=== PATIENT | male | born 1955 | race African-American/Black ===

== ENCOUNTER 2016-12-15 15:05 | Emergency (ER) | payer OTHER ==
[~2016-12-15] VITALS: Ht 162.6 cm; Wt 50.3 kg
[2016-12-15 15:20] VITALS: BP 138/83
[2016-12-15] MEDS ORDERED: HYDROCODONE/APAP 5/325MG TABLET. PO ONE (15:45)
[2016-12-15] MEDS ORDERED: LIDOCAINE 1% / SOD BICARB 8.4% 20 ML VIAL. IJ ONE (15:45)
[2016-12-15] MEDS ORDERED: CYCLOBENZAPRINE 10 MG TABLET. PO ONE (15:45)
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
[2016-12-15] MEDS ORDERED: CYCL10TA2 PO (17:04)
[2016-12-15] MEDS ORDERED: HYDR-971 PO (17:04)
== END 2016-12-15 17:15 | disposition home or self-care (01) ==
LOC: ER 15:05
DX: S02.2XXA Fracture of nasal bones, initial encounter for closed fracture (principal); S01.511A Laceration without foreign body of lip, initial encounter; S13.4XXA Sprain of ligaments of cervical spine, initial encounter; S00.83XA Contusion of other part of head, initial encounter; M54.5 Low back pain; E78.00 Pure hypercholesterolemia, unspecified; I10 Essential (primary) hypertension; V49.40XA Driver injured in collision with unspecified motor vehicles in traffic accident, initial encounter; Y93.I9 Activity, other involving external motion; Y92.410 Unspecified street and highway as the place of occurrence of the external cause; Y99.8 Other external cause status
CPT/HCPCS: 12011; 70450; 70486; 72125; 72131; 99284-25

== ENCOUNTER 2017-06-03 15:51 | Emergency (ER) | payer SELFPAY ==
[~2017-06-03 15:51] MED LIST: CYCL10TA2 PO; HYDR-971 PO
[2017-06-03] MEDS ORDERED: HYDROmorphone 2 MG/ML VIAL IV/SQ PRN (16:15)
[2017-06-03 16:20] LABS: BASO # 0.1 x10^3/uL (0.0-0.2); BASO % 1 % (0-3); EOS % 8 % (0-3); HEMATOCRIT 33.7 % (39.0-53.0); HEMOGLOBIN 11.5 g/dL (13.0-17.5); LYMPH # 2.4 x10^3/uL (1.0-4.8); LYMPH % 42 % (24-48); MEAN CORPUSCULAR HEMOGLOBIN 30 pg (25-35); MEAN CORPUSCULAR HGB CONC 34 g/dL (31-37); MEAN CORPUSCULAR VOLUME 88 fL (79-100); MONO % 8 % (0-9); NEUT % 41 % (31-73); PLATELET COUNT 260 x10^3/uL (140-400); RED BLOOD COUNT 3.81 x10^6/uL (4.30-5.70); RED CELL DISTRIBUTION WIDTH 15.2 % (11.5-14.5); WHITE BLOOD COUNT 5.8 x10^3/uL (4.0-11.0)
[2017-06-03] MEDS ORDERED: ONDANSETRON PF 4 MG/2 ML VIAL. IV ONE (16:30)
[2017-06-03] MEDS ORDERED: IV NORMAL SALINE 1000ML BAG 1,000 ML IV SCH (16:30)
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
[2017-06-03 16:36] LABS: CALCIUM 9.2 mg/dL (8.5-10.1); GFR 91.9; POTASSIUM 3.8 mmol/L (3.5-5.1)
[2017-06-03 16:42] LABS: ALBUMIN 3.5 g/dL (3.4-5.0); DIRECT BILIRUBIN 0.1 mg/dL (0.0-0.2); TOTAL BILIRUBIN 0.4 mg/dL (0.2-1.0); TOTAL PROTEIN 6.8 g/dL (6.4-8.2)
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
[2017-06-03] MEDS ORDERED: IV NORMAL SALINE 1000ML BAG 1,000 ML IV ONE (17:30)
[2017-06-03 18:51] VITALS: BP 146/67
--- NOTE | 2017-06-04 07:12 | EKG ---
[facility] [address] [place] [address] Test Date: 2017-06-03 Test Time: 17:31:35 Pat Name: ZACH BHAKTA Department: Room: Gender: M Tile Applicator: : 1955 Requested By: AMY WASHINGTON Order Number: [id number] Reading MD: Measurements Intervals [place] Rate: 71 P: 47 DC: 146 QRS: 14 QRSD: 80 T: 24 QT: 394 QTc: 433 Interpretive Statements SINUS RHYTHM QRS(T) CONTOUR ABNORMALITY CANNOT RULE OUT ANTEROSEPTAL MYOCARDIAL DAMAGE RI6.01 Unconfirmed report No previous ECG available for comparison
--- NOTE | 2017-06-04 07:36 | RAD ---
Portable chest, 06/03/2017: History: Syncope, shortness of breath The heart size and pulmonary vascularity are normal. No pulmonary infiltrates are seen. There is a probable small calcified granuloma in the right upper lobe. There is no evidence of pleural fluid. IMPRESSION: No acute cardiopulmonary abnormality is detected.
== END 2017-06-03 19:15 | disposition home or self-care (01) ==
LOC: ER 15:51
DX: S09.90XA Unspecified injury of head, initial encounter (principal); M54.2 Cervicalgia; R55 Syncope and collapse; E78.00 Pure hypercholesterolemia, unspecified; I10 Essential (primary) hypertension; W22.8XXA Striking against or struck by other objects, initial encounter; Y93.89 Activity, other specified; Y92.89 Other specified places as the place of occurrence of the external cause; Y99.8 Other external cause status
CPT/HCPCS: 36415; 70450; 71010; 72125; 80048; 80076; 83690; 84484; 85025; 93005; 96360; 96374; 96375; 99285; J1170; J2405; J7030

== ENCOUNTER 2017-12-03 03:28 | Emergency (ER) | payer OTHER ==
[2017-12-03] MEDS: KETOROLAC 30 MG/ML INJ. IM (04:00)
== END 2017-12-03 04:22 | disposition home or self-care (01) ==
LOC: ER 03:28
DX: M79.604 Pain in right leg (principal); R06.82 Tachypnea, not elsewhere classified; K21.9 Gastro-esophageal reflux disease without esophagitis; E78.00 Pure hypercholesterolemia, unspecified; I10 Essential (primary) hypertension; F14.10 Cocaine abuse, uncomplicated; G89.29 Other chronic pain
CPT/HCPCS: 96372; 99283; J1885

== ENCOUNTER 2018-02-11 00:58 | Inpatient (IN) | payer OTHER ==
[2018-02-11 01:44] LABS: BASO # 0.1 x10^3/uL (0.0-0.2); BASO % 1 % (0-3); EOS # 1.8 x10^3/uL (0.0-0.7); EOS % 15 % (0-3); HEMATOCRIT 35.8 % (39.0-53.0); HEMOGLOBIN 12.2 g/dL (13.0-17.5); LYMPH % 16 % (24-48); MEAN CORPUSCULAR HEMOGLOBIN 28 pg (25-35); MEAN CORPUSCULAR HGB CONC 34 g/dL (31-37); MEAN CORPUSCULAR VOLUME 83 fL (79-100); MONO # 0.6 x10^3/uL (0.0-1.1); MONO % 5 % (0-9); NEUT # 7.9 x10^3uL (1.8-7.7); NEUT % 64 % (31-73); PLATELET COUNT 393 x10^3/uL (140-400); RED CELL DISTRIBUTION WIDTH 15.7 % (11.5-14.5); WHITE BLOOD COUNT 12.4 x10^3/uL (4.0-11.0)
[2018-02-11 01:48] LABS: ADD MAN DIFF? YES
[2018-02-11 01:52] LABS: AMPHETAMINE/METHAMPHETAMINE NEG (NEG); BARBITURATES NEG (NEG); BENZODIAZEPINES NEG (NEG); CANNABINOIDS NEG (NEG); COCAINE POS (NEG); METHADONE NEG (NEG); OPIATES NEG (NEG); PHENCYCLIDINE NEG (NEG)
[2018-02-11 01:53] LABS: ETHANOL, URINE NEG (NEG)
[2018-02-11 01:56] LABS: PROTHROMBIN TIME PATIENT 12.8 SEC (11.7-14.0)
[2018-02-11 01:57] LABS: ANION GAP 8 (6-14); BLOOD UREA NITROGEN 8 mg/dL (8-26); BUN/CREATININE RATIO 10 (6-20); CALCIUM 9.4 mg/dL (8.5-10.1); CARBON DIOXIDE 25 mmol/L (21-32); CHLORIDE 105 mmol/L (98-107); CREATININE 0.8 mg/dL (0.7-1.3); GFR 118.5; GLUCOSE 117 mg/dL (70-99); POTASSIUM 3.9 mmol/L (3.5-5.1); SODIUM 138 mmol/L (136-145)
[2018-02-11 02:02] LABS: ALBUMIN 2.7 g/dL (3.4-5.0); ALBUMIN/GLOBULIN RATIO 0.6 (1.0-1.7); ALK PHOS 87 U/L (46-116); ALT (SGPT) 10 U/L (16-63); AST (SGOT) 10 U/L (15-37); TOTAL BILIRUBIN 0.3 mg/dL (0.2-1.0); TOTAL PROTEIN 7.4 g/dL (6.4-8.2)
[2018-02-11 02:03] LABS: ETHANOL < 10 mg/dL (0-10)
[2018-02-11 02:18] LABS: % BANDS 5 % (0-9); % EOS 6 % (0-5); % LYMPHS 17 % (24-48); % MONOS 5 % (0-10); % SEGS 67 % (35-66); PLT ESTIMATE ADEQUATE (ADEQUATE)
[2018-02-11] MEDS ORDERED: CONTRAST GIVEN MC (02:30)
[2018-02-11] MEDS: IOHEXOL 300 MG/ML 100ML VIAL. IV (02:39)
[2018-02-11] MEDS: DEXAMETHASONE SOD PHOS 20 MG/5 ML VIAL. IV (04:37)
[2018-02-11] MEDS: fentaNYL PF VIAL 100 MCG/2 ML VIAL IV ×2 (04:38→20:56)
[2018-02-11] MEDS: NICOTINE 14MG PATCH. TD (10:38)
[2018-02-11] MEDS: oxyCODONE/APAP 5/325 1 TAB TABLET PO ×4 (10:40→23:48)
[2018-02-11] MEDS: GADOBUTROL 7.5 MMOL/7.5 ML VIAL IV (14:31)
[2018-02-11] MEDS: DEXAMETHASONE SOD PHOS 4 MG/ML VIAL IV ×2 (19:52→23:47)
[2018-02-12 01:07] LABS: PROSTATE SPECIFIC ANTIGEN 6.09 ng/mL (0.00-4.00)
[2018-02-12] MEDS: DEXAMETHASONE SOD PHOS 4 MG/ML VIAL IV ×4 (05:52→23:34)
[2018-02-12] MEDS: oxyCODONE/APAP 5/325 1 TAB TABLET PO ×3 (05:53→17:47)
[2018-02-12] MEDS ORDERED: POLYETHYLENE GLYCOL 3350 17 GM PACKET. PO (08:30)
[2018-02-12] MEDS: NICOTINE 14MG PATCH. TD (09:44)
[2018-02-12] MEDS: MORPHINE IR 15 MG TABLET PO ×2 (12:27→23:33)
[2018-02-12] MEDS: MORPHINE ER 15 MG TABLET.ER PO ×2 (14:20→21:33)
[2018-02-12] MEDS ORDERED: POLYVINYL ALCOHOL 1.4% OPHTH SOLUTION 15ML BOTTLE. OU (20:15)
[2018-02-12] MEDS ORDERED: LACTASE 3,000 UNIT TABLET PO (20:30)
[2018-02-12] MEDS ORDERED: LOPERAMIDE 2 MG CAPSULE PO (20:30)
[2018-02-12] MEDS: ZOLPIDEM 5 MG TABLET. PO (21:31)
[2018-02-12] MEDS: MEGESTROL 20 MG TABLET. PO (21:31)
[2018-02-12] MEDS: GABAPENTIN 300 MG CAPSULE. PO (21:32)
[2018-02-12] MEDS: SIMVASTATIN 20 MG TABLET PO (21:32)
[2018-02-12] MEDS: CALCIUM CARB/VIT D3 500/200 TABLET. PO (21:32)
[2018-02-12] MEDS: DIVALPROEX EXTENDED RELEASE 500 MG TAB.ER.24H. PO (21:32)
[2018-02-12] MEDS: ONDANSETRON ODT 4 MG TAB.RAPDIS. PO (23:42)
[2018-02-13] MEDS: oxyCODONE/APAP 5/325 1 TAB TABLET PO ×2 (02:27→14:19)
[2018-02-13] MEDS: MORPHINE IR 15 MG TABLET PO ×4 (06:12→23:46)
[2018-02-13] MEDS: DEXAMETHASONE SOD PHOS 4 MG/ML VIAL IV ×4 (06:12→23:46)
[2018-02-13] MEDS: NICOTINE 14MG PATCH. TD (09:02)
[2018-02-13] MEDS: FLUoxetine HCL 20 MG CAPSULE PO (09:02)
[2018-02-13] MEDS: MELOXICAM 7.5 MG TABLET PO (09:02)
[2018-02-13] MEDS: MEGESTROL 20 MG TABLET. PO ×2 (09:02→21:23)
[2018-02-13] MEDS: POLYETHYLENE GLYCOL 3350 17 GM PACKET. PO (09:02)
[2018-02-13] MEDS: GABAPENTIN 300 MG CAPSULE. PO ×3 (09:02→21:22)
[2018-02-13] MEDS: amLODIPine BESYLATE 5 MG TABLET PO (09:03)
[2018-02-13] MEDS: MULTIVITAMIN with MINERAL TABLET. PO (09:03)
[2018-02-13] MEDS: TAMSULOSIN 0.4 MG CAP.ER.24H. PO (09:03)
[2018-02-13] MEDS: LISINOPRIL 20 MG TABLET PO (09:03)
[2018-02-13] MEDS: FERROUS SULFATE 325 MG TABLET. PO (09:04)
[2018-02-13] MEDS: PANTOPRAZOLE 40 MG TABLET.DR. PO (09:04)
[2018-02-13] MEDS: MORPHINE ER 15 MG TABLET.ER PO ×2 (09:04→21:22)
[2018-02-13] MEDS: CALCIUM CARB/VIT D3 500/200 TABLET. PO ×2 (09:04→21:22)
[2018-02-13] MEDS: ONDANSETRON ODT 4 MG TAB.RAPDIS. PO (12:47)
[2018-02-13] MEDS: DIVALPROEX EXTENDED RELEASE 500 MG TAB.ER.24H. PO (21:22)
[2018-02-13] MEDS: ZOLPIDEM 5 MG TABLET. PO (21:23)
[2018-02-13] MEDS: SIMVASTATIN 20 MG TABLET PO (21:23)
[2018-02-14] MEDS: ONDANSETRON ODT 4 MG TAB.RAPDIS. PO ×2 (00:39→08:25)
[2018-02-14] MEDS: oxyCODONE/APAP 5/325 1 TAB TABLET PO (03:46)
[2018-02-14] MEDS: MORPHINE IR 15 MG TABLET PO ×3 (06:24→23:58)
[2018-02-14] MEDS: DEXAMETHASONE SOD PHOS 4 MG/ML VIAL IV ×4 (06:24→23:57)
[2018-02-14] MEDS: FLUoxetine HCL 20 MG CAPSULE PO (08:15)
[2018-02-14] MEDS: PANTOPRAZOLE 40 MG TABLET.DR. PO (08:15)
[2018-02-14] MEDS: GABAPENTIN 300 MG CAPSULE. PO ×3 (08:15→20:04)
[2018-02-14] MEDS: POLYETHYLENE GLYCOL 3350 17 GM PACKET. PO ×2 (08:15→20:12)
[2018-02-14] MEDS: LISINOPRIL 20 MG TABLET PO (08:16)
[2018-02-14] MEDS: MELOXICAM 7.5 MG TABLET PO (08:16)
[2018-02-14] MEDS: DOCUSATE SODIUM 100 MG CAPSULE. PO ×2 (08:16→20:11)
[2018-02-14] MEDS: MORPHINE ER 15 MG TABLET.ER PO ×2 (08:17→20:05)
[2018-02-14] MEDS: MULTIVITAMIN with MINERAL TABLET. PO (08:17)
[2018-02-14] MEDS: amLODIPine BESYLATE 5 MG TABLET PO (08:17)
[2018-02-14] MEDS: FERROUS SULFATE 325 MG TABLET. PO (08:18)
[2018-02-14] MEDS: TAMSULOSIN 0.4 MG CAP.ER.24H. PO (08:18)
[2018-02-14] MEDS: NICOTINE 14MG PATCH. TD (08:18)
[2018-02-14] MEDS: CALCIUM CARB/VIT D3 500/200 TABLET. PO ×2 (08:18→20:04)
[2018-02-14] MEDS: MEGESTROL 20 MG TABLET. PO ×2 (08:18→20:05)
[2018-02-14] MEDS: DIVALPROEX EXTENDED RELEASE 500 MG TAB.ER.24H. PO (20:04)
[2018-02-14] MEDS: ZOLPIDEM 5 MG TABLET. PO (20:04)
[2018-02-14] MEDS: SIMVASTATIN 20 MG TABLET PO (20:05)
[2018-02-15] MEDS: DEXAMETHASONE SOD PHOS 4 MG/ML VIAL IV ×3 (05:30→21:07)
[2018-02-15] MEDS: LISINOPRIL 20 MG TABLET PO (08:49)
[2018-02-15] MEDS: NICOTINE 14MG PATCH. TD (08:49)
[2018-02-15] MEDS: TAMSULOSIN 0.4 MG CAP.ER.24H. PO (08:50)
[2018-02-15] MEDS: amLODIPine BESYLATE 5 MG TABLET PO (08:50)
[2018-02-15] MEDS: FLUoxetine HCL 20 MG CAPSULE PO (08:51)
[2018-02-15] MEDS: MELOXICAM 7.5 MG TABLET PO (08:51)
[2018-02-15] MEDS: GABAPENTIN 300 MG CAPSULE. PO ×3 (08:51→21:06)
[2018-02-15] MEDS: MORPHINE ER 15 MG TABLET.ER PO ×2 (08:51→21:06)
[2018-02-15] MEDS: CALCIUM CARB/VIT D3 500/200 TABLET. PO ×2 (08:52→21:00)
[2018-02-15] MEDS: PANTOPRAZOLE 40 MG TABLET.DR. PO (08:52)
[2018-02-15] MEDS: FERROUS SULFATE 325 MG TABLET. PO (08:52)
[2018-02-15] MEDS: MULTIVITAMIN with MINERAL TABLET. PO (08:52)
[2018-02-15] MEDS: MEGESTROL 20 MG TABLET. PO ×2 (09:13→21:07)
[2018-02-15] MEDS: MORPHINE IR 15 MG TABLET PO ×2 (09:59→14:14)
[2018-02-15] MEDS: oxyCODONE/APAP 5/325 1 TAB TABLET PO ×2 (12:02→16:58)
[2018-02-15] MEDS: POLYETHYLENE GLYCOL 3350 17 GM PACKET. PO (17:01)
[2018-02-15] MEDS: SIMVASTATIN 20 MG TABLET PO (21:07)
[2018-02-15] MEDS: ZOLPIDEM 5 MG TABLET. PO (21:07)
[2018-02-15] MEDS: DIVALPROEX EXTENDED RELEASE 500 MG TAB.ER.24H. PO (21:07)
[2018-02-16] MEDS: oxyCODONE/APAP 5/325 1 TAB TABLET PO ×5 (01:01→22:59)
[2018-02-16] MEDS: DEXAMETHASONE SOD PHOS 4 MG/ML VIAL IV ×5 (01:01→22:59)
[2018-02-16] MEDS: MORPHINE IR 15 MG TABLET PO ×2 (02:51→14:44)
[2018-02-16] MEDS: MEGESTROL 20 MG TABLET. PO ×2 (09:14→20:23)
[2018-02-16] MEDS: NICOTINE 14MG PATCH. TD (09:14)
[2018-02-16] MEDS: POLYETHYLENE GLYCOL 3350 17 GM PACKET. PO (09:14)
[2018-02-16] MEDS: PANTOPRAZOLE 40 MG TABLET.DR. PO (09:15)
[2018-02-16] MEDS: FLUoxetine HCL 20 MG CAPSULE PO (09:15)
[2018-02-16] MEDS: LISINOPRIL 20 MG TABLET PO (09:15)
[2018-02-16] MEDS: TAMSULOSIN 0.4 MG CAP.ER.24H. PO (09:15)
[2018-02-16] MEDS: GABAPENTIN 300 MG CAPSULE. PO ×3 (09:16→20:23)
[2018-02-16] MEDS: MORPHINE ER 15 MG TABLET.ER PO ×2 (09:16→20:23)
[2018-02-16] MEDS: MELOXICAM 7.5 MG TABLET PO (09:16)
[2018-02-16] MEDS: FERROUS SULFATE 325 MG TABLET. PO (09:16)
[2018-02-16] MEDS: CALCIUM CARB/VIT D3 500/200 TABLET. PO ×2 (09:16→20:23)
[2018-02-16] MEDS: MULTIVITAMIN with MINERAL TABLET. PO (09:16)
[2018-02-16] MEDS: amLODIPine BESYLATE 5 MG TABLET PO (09:17)
[2018-02-16] MEDS: DIVALPROEX EXTENDED RELEASE 500 MG TAB.ER.24H. PO (20:22)
[2018-02-16] MEDS: ZOLPIDEM 5 MG TABLET. PO (20:23)
[2018-02-16] MEDS: SIMVASTATIN 20 MG TABLET PO (20:23)
[2018-02-17] MEDS: MORPHINE IR 15 MG TABLET PO ×2 (02:52→12:20)
[2018-02-17] MEDS: oxyCODONE/APAP 5/325 1 TAB TABLET PO ×2 (05:56→14:33)
[2018-02-17] MEDS: DEXAMETHASONE SOD PHOS 4 MG/ML VIAL IV ×2 (05:56→12:19)
[2018-02-17] MEDS: NICOTINE 14MG PATCH. TD (09:00)
[2018-02-17] MEDS: TAMSULOSIN 0.4 MG CAP.ER.24H. PO (09:01)
[2018-02-17] MEDS: LISINOPRIL 20 MG TABLET PO (09:01)
[2018-02-17] MEDS: amLODIPine BESYLATE 5 MG TABLET PO (09:02)
[2018-02-17] MEDS: FLUoxetine HCL 20 MG CAPSULE PO (09:02)
[2018-02-17] MEDS: MELOXICAM 7.5 MG TABLET PO (09:02)
[2018-02-17] MEDS: PANTOPRAZOLE 40 MG TABLET.DR. PO (09:02)
[2018-02-17] MEDS: GABAPENTIN 300 MG CAPSULE. PO ×2 (09:02→14:32)
[2018-02-17] MEDS: CALCIUM CARB/VIT D3 500/200 TABLET. PO (09:02)
[2018-02-17] MEDS: FERROUS SULFATE 325 MG TABLET. PO (09:02)
[2018-02-17] MEDS: MULTIVITAMIN with MINERAL TABLET. PO (09:02)
[2018-02-17] MEDS: MORPHINE ER 15 MG TABLET.ER PO (09:03)
[2018-02-17] MEDS: MEGESTROL 20 MG TABLET. PO (10:31)
== END 2018-02-17 14:40 | disposition home health service (06) | DRG 180 ==
LOC: ER 00:58 → 6 SOUTH 02:20
PROC: 5A09357 Assistance with Respiratory Ventilation, Less than 24 Consecutive Hours, Continuous Positive Airway Pressure (ICD-10-PCS; principal; 2018-02-12)
DX: C78.00 Secondary malignant neoplasm of unspecified lung (principal); G93.6 Cerebral edema; C79.31 Secondary malignant neoplasm of brain; H49.00 Third [oculomotor] nerve palsy, unspecified eye; M19.90 Unspecified osteoarthritis, unspecified site; F14.10 Cocaine abuse, uncomplicated; H53.2 Diplopia; F17.210 Nicotine dependence, cigarettes, uncomplicated; Z51.5 Encounter for palliative care; I10 Essential (primary) hypertension; E78.5 Hyperlipidemia, unspecified; K21.9 Gastro-esophageal reflux disease without esophagitis; K63.5 Polyp of colon; H02.402 Unspecified ptosis of left eyelid; J44.9 Chronic obstructive pulmonary disease, unspecified; H54.7 Unspecified visual loss; G89.29 Other chronic pain; Z92.3 Personal history of irradiation; Z85.46 Personal history of malignant neoplasm of prostate; Z80.0 Family history of malignant neoplasm of digestive organs; Z80.1 Family history of malignant neoplasm of trachea, bronchus and lung; Z80.42 Family history of malignant neoplasm of prostate; Z80.8 Family history of malignant neoplasm of other organs or systems
CPT/HCPCS: 36415; 70450; 70496; 70498; 70553; 80053; 80307; 85007; 85025; 85610; 93005; 96374; 97116-GP; 97162-GP; 97166-GO; 99285; 99285-25; A9585; G0103; G0480; J1100; J3010; Q0162; Q9967